=== PATIENT | female | born 1970 | race Caucasian/White ===

== ENCOUNTER 2017-07-23 14:08 | Emergency (ER) | payer OTHER ==
[~2017-07-23] VITALS: Ht 170.2 cm; Wt 50.0 kg
[2017-07-23] MEDS ORDERED: ONDANSETRON 4 MG INJ IV STA (14:12)
[2017-07-23] MEDS ORDERED: SOD CHLORIDE 0.9% 1,000 ML IV STA (14:12)
[2017-07-23] MEDS ORDERED: HALOPERIDOL 5 MG INJ IM ONE ×2 (14:30)
[2017-07-23 14:35] VITALS: Ht 170.2 cm; Wt 50.0 kg
[2017-07-23 15:03] LABS: BASOPHIL # 0.1 10^3/ul (0.0-0.1); BASOPHILS % 0.7 % (0.0-2.0); EOSINOPHILS % 0.1 % (0.0-7.0); HEMATOCRIT 33.8 % (37.0-47.0); HEMOGLOBIN 11.5 g/dl (12.0-16.0); LYMPHOCYTES # 2.7 10^3/ul (0.8-2.9); LYMPHOCYTES % 27.8 % (15.0-51.0); MEAN CORPUSCULAR HEMOGLOBIN 28.8 pg (29.0-33.0); MEAN CORPUSCULAR VOLUME 84.5 fl (82.0-101.0); MEAN PLATELET VOLUME 10.6 fl (7.4-10.4); MONOCYTE # 0.8 10^3/ul (0.3-0.9); MONOCYTES % 7.8 % (0.0-11.0); NEUTROPHIL # 6.1 10^3/ul (1.6-7.5); NEUTROPHILS % 63.3 % (39.0-77.0); PLATELET COUNT 439 10^3/UL (140-415); RED CELL DISTRIBUTION WIDTH 16.8 % (11.5-14.5); WHITE BLOOD COUNT 9.7 10^3/ul (4.8-10.8)
[2017-07-23 15:27] LABS: URINE BLOOD (Dip) POC Negative (NEGATIVE)
[2017-07-23 15:54] LABS: ACETAMINOPHEN < 10.0 ug/ml (10.0-30.0); ETHANOL < 10.0 mg/dl; SALICYLATE < 1.0 mg/dl (5.0-30.0)
[2017-07-23 16:01] LABS: ADD UMIC NO; UR ASCORBIC ACID 20 mg/dL (NEGATIVE); UR BILIRUBIN (Dip) NEGATIVE (NEGATIVE); UR BLOOD (Dip) NEGATIVE (NEGATIVE); UR CLARITY CLEAR (CLEAR); UR COLOR YELLOW (YELLOW); UR GLUCOSE (Dip) NEGATIVE (NEGATIVE); UR KETONES (Dip) NEGATIVE (NEGATIVE); UR LEUKOCYTE ESTERASE (Dip) NEGATIVE Leu/ul (NEGATIVE); UR NITRITE (Dip) NEGATIVE (NEGATIVE); UR SPECIFIC GRAVITY (Dip) 1.028 (1.003-1.030); UR TOTAL PROTEIN (Dip) NEGATIVE (NEGATIVE); UR UROBILINOGEN (Dip) NEGATIVE (NEGATIVE)
[2017-07-23 16:02] LABS: ALBUMIN 4.5 g/dl (3.3-4.9); ALBUMIN/GLOBULIN RATIO 1.25; BILIRUBIN,INDIRECT 0.8 mg/dl (0-1.1); BILIRUBIN,TOTAL 0.8 mg/dl (0.2-1.3); CALCIUM 9.8 mg/dl (8.4-10.2); CREATININE 0.84 mg/dl (0.44-1.00); POTASSIUM 4.2 mmol/L (3.5-5.1); TOTAL PROTEIN 8.1 g/dl (6.1-8.1)
[2017-07-23 16:24] LABS: BARBITURATES Negative (NEGATIVE); BENZODIAZEPINES Negative (NEGATIVE); CANNABINOIDS Negative (NEGATIVE); COCAINE Negative (NEGATIVE); OPIATES Negative (NEGATIVE)
--- NOTE | 2017-07-23 19:56 | ERD ---
ER Documentation Chief Complaint Chief Complaint HPI This 47-year-old female was brought in by paramedics and police after she was agitated in public shouting obscenities. She admits to using crystal meth and continues shouting obscenities. She denies having any pain. Is unable to get a accurate history from she is very agitated. ROS Denies all symptoms a comprehensive review of systems however she may be unreliable secondary to methamphetamine intoxication. Physical Exam Vitals Vital Signs Date Time Temp Pulse Resp B/P Pulse Ox O2 Delivery O2 Flow Rate FiO2 07/23/17 18:48 78 16 145/91 99 Room Air 07/23/17 18:00 81 16 135/91 100 Room Air 07/23/17 16:30 83 16 142/98 100 Room Air 07/23/17 16:15 98.1 83 16 135/96 100 07/23/17 16:00 98.0 80 17 141/92 100 Room Air 07/23/17 15:45 85 16 134/96 100 Room Air 07/23/17 15:30 96 16 124/88 100 Room Air 07/23/17 15:15 97.8 87 16 135/88 100 Room Air 07/23/17 15:00 98.0 96 16 145/76 100 Room Air 07/23/17 14:45 98.1 101 18 124/71 100 Room Air 07/23/17 14:35 98.1 104 18 127/72 100 Room Air 07/23/17 14:35 98.1 104 18 127/72 96 Physical Exam Const: [] Moderate distress, very agitated Head: Atraumatic Eyes: Normal Conjunctiva, PERRLA with moderately dilated pupils, EOMI ENT: Normal External Ears, Nose and Mouth. Poor dentition Neck: Full range of motion.. No JVD Resp: Clear to auscultation bilaterally Cardio: Regular rate and rhythm, no murmurs Abd: Soft, non tender, non distended. Normal bowel sounds Skin: No petechiae or rashes Ext: No cyanosis, or edema Neur: Awake and alert and oriented times at least 2, did not answer the third orientation questions to time, moves all 4 extremities certainly but cannot perform a full neurological exam secondary to lack of cooperation Psych: Very agitated Result Diagram: 07/23/17 1410 07/23/17 1300 Results 24 hrs Laboratory Tests Test 07/23/17 13:00 07/23/17 14:10 07/23/17 14:17 07/23/17 14:19 Sodium Level 141mmol/L Potassium Level 4.2mmol/L Chloride Level 104mmol/L Carbon Dioxide Level 28mmol/L Anion Gap 13 Blood Urea Nitrogen 24mg/dl Creatinine 0.84mg/dl Glucose Level 94mg/dl Calcium Level 9.8mg/dl Total Bilirubin 0.8mg/dl Direct Bilirubin 0.00mg/dl Indirect Bilirubin 0.8mg/dl Aspartate Amino Transf (AST/SGOT) 36IU/L Alanine Aminotransferase (ALT/SGPT) 33IU/L Alkaline Phosphatase 55IU/L Total Protein 8.1g/dl Albumin 4.5g/dl Globulin 3.60g/dl Albumin/Globulin Ratio 1.25 Lipase 83U/L Salicylates Level < 1.0mg/dl Acetaminophen Level < 10.0ug/ml Ethyl Alcohol Level < 10.0mg/dl White Blood Count 9.710^3/ul Red Blood Count 4.0010^6/ul Hemoglobin 11.5g/dl Hematocrit 33.8% Mean Corpuscular Volume 84.5fl Mean Corpuscular Hemoglobin 28.8pg Mean Corpuscular Hemoglobin Concent 34.0g/dl Red Cell Distribution Width 16.8% Platelet Count 40494^3/UL Mean Platelet Volume 10.6fl Neutrophils % 63.3% Lymphocytes % 27.8% Monocytes % 7.8% Eosinophils % 0.1% Basophils % 0.7% Nucleated Red Blood Cells % 0.0/100WBC Neutrophils # 6.110^3/ul Lymphocytes # 2.710^3/ul Monocytes # 0.810^3/ul Eosinophils # 0.010^3/ul Basophils # 0.110^3/ul Nucleated Red Blood Cells # 0.010^3/ul Lactic Acid Level 1.3mmol/L Bedside Glucose 114mg/dL 139mg/dL Test 07/23/17 15:24 07/23/17 15:26 Urine Color YELLOW Urine Clarity CLEAR Urine pH 5.0 Urine Specific [place] 1.028 Urine Ketones NEGATIVEmg/dL Urine Nitrite NEGATIVEmg/dL Urine Bilirubin NEGATIVEmg/dL Urine Urobilinogen NEGATIVEmg/dL Urine Leukocyte Esterase NEGATIVELeu/ul Urine Hemoglobin NEGATIVEmg/dL Urine Glucose NEGATIVEmg/dL Urine Total Protein NEGATIVEmg/dl Urine Opiates Screen Negative Urine Barbiturates Negative Urine Amphetamines Screen POSITIVE Urine Benzodiazepines Screen Negative Urine Cocaine Screen Negative Urine Cannabinoids Negative Bedside Urine pH (LAB) 5.5 Bedside Urine Protein (LAB) 1+ Bedside Urine Glucose (UA) Negative Bedside Urine Ketones (LAB) Negative Bedside Urine Blood Negative Bedside Urine Nitrite (LAB) Negative Bedside Urine Leukocyte Esterase (L Negative Current Medications Medications (Trade) Dose Ordered Sig/Catina Route PRN Reason Start Time Stop Time Status Last Admin Dose Admin Sodium Chloride (NS) 1,000 ml @ 1,000 mls/hr Q1H STAT IV 07/23/17 14:12 07/23/17 15:11 DC 07/23/17 14:26 Ondansetron HCl (Zofran Inj) 4 mg ONCE STAT IV 07/23/17 14:12 07/23/17 14:13 DC 07/23/17 14:26 Haloperidol (Haldol) 5 mg ONCE ONCE IM 07/23/17 14:30 07/23/17 14:31 DC 07/23/17 14:21 Haloperidol (Haldol) 5 mg ONCE ONCE IM 07/23/17 14:30 07/23/17 14:31 DC Procedures/MDM Methamphetamine intoxication with aggressive and agitated behavior. Laboratory analysis performed which shows no acute abnormalities. Patient does have mild anemia. Tox screen for methamphetamines. Patient was given Haldol 5 mg and then repeat dose of Haldol 5 mg that she remained agitated. She was more reasonable couple hours later and stated that she still had no pain or trauma. She did not have any thoughts of harming herself or others. She was still fairly uncooperative and was somnolent. Denies any chest pain shortness of breath or any other pain. Disposition be left to the oncoming provider but anticipate that she will be discharged as soon as her methamphetamine intoxication wears off. Is also given Zofran injection in order to prevent vomiting secondary to methamphetamine intoxication. 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 Departure Diagnosis: Primary Impression: Methamphetamine intoxication Additional Impression: Agitation Condition: Stable JASBIR RODRIGUEZ DO Jul 23, 2017 19:56
[2017-07-23 22:00] VITALS: BP 145/70; PULSE 72; RESP 16; TEMP 98.5
== END 2017-07-23 22:00 | disposition home or self-care (01) ==
LOC: E/R 14:08
DX: F15.129 Other stimulant abuse with intoxication, unspecified (principal); R40.2142 Coma scale, eyes open, spontaneous, at arrival to emergency department; R40.2242 Coma scale, best verbal response, confused conversation, at arrival to emergency department; R40.2342 Coma scale, best motor response, flexion withdrawal, at arrival to emergency department
CPT/HCPCS: 36415; 80053; 80306; 80307; 81003; 82962; 83605; 83690; 85025; 96372; 96374; J1630; J2405; J7030; P9612; Z7502; Z7610; A4310

== ENCOUNTER 2018-12-27 17:47 | Emergency (ER) | payer SELFPAY ==
[~2018-12-27] VITALS: Ht 171.4 cm; Wt 62.9 kg
[2018-12-27 18:41] VITALS: Ht 171.4 cm; Wt 62.9 kg
--- NOTE | 2018-12-28 05:40 | ERD ---
ER Documentation Chief Complaint Chief Complaint [id number]; RAN OUT OF ASTGMA MEDS; FEELS SOB TODAY; NO RESP DISTRESS HPI This is a 48-year-old brought in by rescue initiates that she ran out of for psychological medications. She denies any fevers chills nausea vomiting which she does say she is hearing and seeing voices. She has no fevers or chills. Denies any other current complaints. ROS All systems reviewed and are negative except as per history of present illness. Medications Home Meds Unable to Obtain Active Prescriptions or Reported Meds Allergies Allergies: Coded Allergies: Unknown: Unable to obtain (Unverified , 07/04/18) PMhx/Soc Hx Miscellaneous Medical Probl: Yes (schizophrenia) Hx Alcohol Use: No (denies) Hx Substance Use: No Hx Tobacco Use: Yes Physical Exam Vitals Vital Signs Date Temp Pulse Resp B/P (MAP) Pulse Ox O2 O2 Flow FiO2 Time Delivery Rate 12/27/18 98.5 85 19 160/101 100 18:41 (120) Physical Exam Const: No acute distress Head: Atraumatic Eyes: Normal Conjunctiva ENT: Normal External Ears, Nose and Mouth. Neck: Full range of motion. No meningismus. Resp: Clear to auscultation bilaterally Cardio: Regular rate and rhythm, no murmurs Abd: Soft, non tender, non distended. Normal bowel sounds Skin: No petechiae or rashes Back: No midline or flank tenderness Ext: No cyanosis, or edema Neur: Awake and alert Psych: Normal Mood and Affect Procedures/MDM Patient's behavioral symptoms have stabilized while in the department. Patient is medically cleared and appropriate for psychiatric evaluation and work up. No e/o neurologic, toxic, infectious, or metabolic cause. At this time she is pending telemetry psychiatry evaluation for possible 5150 hold Departure Diagnosis: Primary Impression: Psychological disorder Condition: SONA Morales Dec 28, 2018 05:40
--- NOTE | 2018-12-28 06:06 | PSY ---
Date/Time of Note Date/Time of Note DATE: 12/28/18 TIME: 05:57 Psychiatric Subjective Eval Consent Pt consented to telemedicine: Yes Subjective Evaluation Patient location: emergency Chief Complaint: [id number]; RAN OUT OF ASTGT Urological MEDS; FEELS SOB TODAY; NO RESP DISTRESS Medical history Problems Medical Problems: (1) Agitation Status: Acute (2) Methamphetamine intoxication Status: Acute (3) Psychological disorder Status: Acute (4) Suicidal ideation Status: Acute Allergies: Coded Allergies: Unknown: Unable to obtain (Unverified , 07/04/18) Assessment and Plan Recommendation/Plan Discharge Disposition: Psychiatric inpatient Legal Status: Place involuntary hold Assessment Additional comments: IDENTIFYING INFORMATION: 48 year old Female patient who is currently located at the hospital and for whom psychiatric consultation was requested. SOURCES OF INFORMATION: The patient who appears to be somewhat reliable and the medical records; the nursing staff. CHIEF COMPLAINT: "suicidal". HISTORY OF PRESENT ILLNESS: The patient was interviewed via telemedicine in the presence of and under the supervision of nursing staff of the hospital. The consent to conducting this interview via telemedicine was obtained by the nursing staff at the hospital. BESSIE Early reports that the patient presented with a medication refill request for asthma, AH which are slanderous, SI. Is not on a 5150 hold. The patient reports having SI, depressed mood, AH. The patient denies having delusions, VH. The patient denies using alcohol heavily or regularly. The patient denies using any other substances. In terms of past psychiatric history, the patient reports having a history of past psychiatric hospitalizations. The patient reports having a history of past suicide attempts. Past trials: Effexor, latuda, geodon. PAST MEDICAL HISTORY: none. CURRENT MEDICATIONS: none. ALLERGIES TO MEDICATIONS: NKDA. LABORATORY TESTS: pending. SOCIAL HISTORY: lives alone, not homeless, has children, , not employed. REVIEW OF SYSTEMS: Constitutional (e.g., fever, weight loss): negative; Eyes, Ears, Nose, Mouth, Throat: negative; Cardiovascular: negative; Respiratory: negative; Gastrointestinal: negative; Genitourinary: negative; Musculoskeletal: negative; Integumentary (skin and/or breast): negative; Neurological: negative; Psychiatric: as per HPI; Endocrine: negative; Hematologic/Lymphatic: negative; Allergic/Immunologic: negative. MENTAL STATUS EXAMINATION: General Appearance and Behavior: Calm, cooperative with the interview, pleasant with the current interviewer, makes fair eye contact, fairly groomed, no abnormal movements noted, Speech: Regular rate, regular rhythm, normal latency, normal volume, somewhat decreased amount, Flow of thought: sequential, logical, goal-directed, Content of thought: + auditory hallucinations, no visual hallucinations, no delusions, positive for suicidal ideation; no homicidal ideation, Mood: "depressed", Affect: dysthymic, dysphoric, not reactive, Attention: normal based on the interview, Insight: fair, Judgment: poor, Memory: normal based on the interview, Sensorium: alert and oriented to person, place and date. ASSESSMENT: The patient's presentation and history are consistent with the diagnosis of unspecified psychotic disorder. The patient presents with an exacerbation of psychosis in the context of medication noncompliance, psychosocial stressors and substance use. No evidence of psychosis, maia, hypomania on exam. PLAN: - Medication management: Would start Latuda 40 mg po qday. Would start haloperidol 5 mg IM PRN severe agitation q4 hours. Would start diphenhydramine 50 mg IM PRN severe agitation q4 hours. Would start lorazepam 2 mg IM PRN severe agitation q4 hours Will defer to the inpatient psychiatry team for other medication changes. - Labs: Please check CBC, CMP, Alcohol level, UDS. - Psychotherapy: Provided supportive psychotherapy and psychoeducation. - Disposition: Would recommend involuntary admission to the inpatient psychiatric unit given the severity of the patient's psychiatric condition and the fact that the patient is an imminent danger to self and/or others so long as the patient has been cleared medically for admission to psychiatry. Inpatient psychiatric a dmission is at this time the least restrictive environment where the patient can receive the psychiatric care that is needed. Would place on suicide precautions. The patient fulfills criteria for being placed on an involuntary hold for being a danger to self due to a psychiatric disorder. Discussed about the above plan with Dr. Cabrera. ALESIA LOVE MD Dec 28, 2018 06:06
--- NOTE | 2018-12-28 19:41 | QN ---
Documentation Comment Observation Note: Time: 4 hours Family Hx: Negative for diabetes Evaluation: Multiple exams showed improving symptoms and no evidence of clinical decompensation. DEVAUGHN PORTER MD Dec 28, 2018 19:41
[2018-12-28] MEDS ORDERED: VENL37.56 PO (23:45)
[2018-12-28] MEDS ORDERED: LURA20TA PO (23:45)
--- NOTE | 2018-12-29 04:36 | EN ---
Date/Time of Note Date/Time of Note DATE: 12/29/18 TIME: 04:36 ER Progress Note Observation Note: Time: 4 hours Family Hx: No Hypertension Evaluation: Multiple exams showed improving symptoms and no evidence of decompensation SONA HERNANDEZ Dec 29, 2018 04:36
[2018-12-29] MEDS ORDERED: ZIPRASIDONE 20 MG CAP PO ONE (09:00)
[2018-12-29 16:03] VITALS: BP 115/75; PULSE 98; RESP 17
== END 2018-12-29 17:10 ==
LOC: E/R 17:47
DX: F99 Mental disorder, not otherwise specified (principal); Z87.891 Personal history of nicotine dependence
CPT/HCPCS: 36415; 80053; 80307; 81001; 84703; 85025

== ENCOUNTER 2019-02-27 23:03 | Inpatient (IN) | payer OTHER ==
[~2019-02-27] VITALS: Ht 165.1 cm; Wt 64.1 kg
[~2019-02-27 23:03] MED LIST: LURA20TA PO; VENL37.56 PO
[2019-02-27 23:15] VITALS: Ht 165.1 cm; Wt 64.1 kg
[2019-02-27] MEDS ORDERED: ONDANSETRON 4 MG INJ IV STA (23:26)
[2019-02-27] MEDS ORDERED: SOD CHLORIDE 0.9% 1,000 ML IV STA (23:26)
--- NOTE | 2019-02-28 03:06 | ERD ---
ER Documentation Chief Complaint Chief Complaint nausea, vomit HPI This is a 48-year-old female who is homeless and said she is had nausea and vomiting for several days now. She is a very poor historian and will not answer many my questions. She says she had diarrhea that she says she is not sure. Denies any cough or dysuria. She says she has abdominal pain that is diffuse and moderate. Does not know if she is had a fever ROS All systems reviewed and are negative except as per history of present illness. Allergies Allergies: Coded Allergies: No Known Allergy (Unverified , 02/28/19) PMhx/Soc Medical and Surgical Hx: pt denies Medical Hx, pt denies Surgical Hx Hx Psychiatric Problems: Yes (SCHIZOPHRENIA ) Hx Alcohol Use: No Hx Substance Use: No Hx Tobacco Use: No Smoking Status: Never smoker FmHx Family History: No coronary disease Physical Exam Vitals Vital Signs Date Temp Pulse Resp B/P (MAP) Pulse Ox O2 O2 Flow FiO2 Time Delivery Rate 02/27/19 98.4 86 16 110/69 100 23:15 (83) Physical Exam Const: Well-developed, well-nourished Head: Atraumatic, normocephalic Eyes: Normal Conjunctiva, PERRLA, EOMI, normal sclera, no nystagmus ENT: Normal External Ears, Nose and Mouth, moist mucus membranes. Neck: Full range of motion. No meningismus, no lymphadenopathy. Resp: Clear to auscultation bilaterally, no wheezing, rhonchi, rales Cardio: Regular rate and rhythm, no murmurs, S1 S2 present Abd: Soft, diffuse moderate tenderness, non distended. Normal bowel gomez nds, no guarding or rebound, no pulsitile abdominal masses or bruits Skin: No petechiae or rashes, no ecchymosis , no maculopapular rash Back: No midline or flank tenderness Ext: No cyanosis, or edema, FROM x 4, normal inspection, neurovascularly intact x 4 Neur: Awake and alert, STR 5/5 x 4, sensation intact x 4, no focal findings, cerebellum intact Psych: Normal Mood and Affect Result Diagram: 02/27/19 6845 02/27/19 8756 Results 24 hrs Laboratory Tests Test 02/27/19 23:39 02/27/19 23:59 White Blood Count 18.9 10^3/ul Red Blood Count 4.87 10^6/ul Hemoglobin 14.9 g/dl Hematocrit 45.2 % Mean Corpuscular Volume 92.8 fl Mean Corpuscular Hemoglobin 30.6 pg Mean Corpuscular Hemoglobin Concent 33.0 g/dl Red Cell Distribution Width 13.2 % Platelet Count 245 10^3/UL Mean Platelet Volume 10.5 fl Immature Granulocytes % 0.400 % Neutrophils % 89.0 % Lymphocytes % 2.7 % Monocytes % 6.7 % Eosinophils % 0.8 % Basophils % 0.4 % Nucleated Red Blood Cells % 0.0 /100WBC Immature Granulocytes # 0.080 10^3/ul Neutrophils # 16.8 10^3/ul Lymphocytes # 0.5 10^3/ul Monocytes # 1.3 10^3/ul Eosinophils # 0.2 10^3/ul Basophils # 0.1 10^3/ul Nucleated Red Blood Cells # 0.0 10^3/ul Serum HCG, Qualitative NEGATIVE Sodium Level 140 mmol/L Potassium Level 3.4 mmol/L Chloride Level 103 mmol/L Carbon Dioxide Level 27 mmol/L Anion Gap 10 Blood Urea Nitrogen 17 mg/dl Creatinine 0.64 mg/dl Est Glomerular Filtrat Rate mL/min > 60 mL/min Glucose Level 101 mg/dl Calcium Level 8.1 mg/dl Total Bilirubin 0.9 mg/dl Direct Bilirubin 0.00 mg/dl Indirect Bilirubin 0.9 mg/dl Aspartate Amino Transf (AST/SGOT) 26 IU/L Alanine Aminotransferase (ALT/SGPT) 26 IU/L Alkaline Phosphatase 48 IU/L Total Protein 6.4 g/dl Albumin 3.7 g/dl Globulin 2.70 g/dl Albumin/Globulin Ratio 1.37 Lipase 107 U/L Current Medications Medications Dose Sig/Catina Start Time Status Last (Trade) Ordered Route PRN Stop Time Admin Dose Reason Admin Sodium 1,000 ml @ Q1H STAT 02/27/19 DC 02/27/19 Chloride 1,000 mls/hr IV 23:26 23:44 02/28/19 00:25 Ondansetron 4 mg ONCE STAT 02/27/19 DC 02/27/19 HCl (Zofran IV 23:26 23:44 Inj) 02/27/19 23:27 Procedures/MDM [place] [id number] Radiology Main Line: [phone] DIAGNOSTIC IMAGING REPORT Patient: RON GUALLPA : 1970 Age: 48 Sex: F MR #: [id number] DOS: 02/28/19 0149 Ordering MD: SIMON SIM DO Location: E/R Room/Bed: PROCEDURE: CHEST - 1 VIEW CLINICAL INDICATION: 48-year-old female with chest/abdominal pain. TECHNIQUE: A single frontal AP supine view of the chest was performed. The images were reviewed on a PACS workstation. COMPARISON: None. FINDINGS: The cardiomediastinal silhouette has a normal appearance. There is no evidence for an infiltrate. There is no evidence for congestive heart failure. There is no evidence for pneumothorax. The osseous structures are intact. IMPRESSION: No evidence for active cardiopulmonary disease. .Jonel Srinivasan MD, MD Date Time Electronically viewed and signed by .Jonel Srinivasan MD, MD on 02/28/2019 02:48 .M/ CC: SIMON SIM DO [id number] [place] [id number] Radiology Main Line: [phone] DIAGNOSTIC IMAGING REPORT Patient: RON GUALLPA : 1970 Age: 48 Sex: F MR #: [id number] DOS: 02/27/19 2326 Ordering MD: SIMON SIM DO Location: E/R Room/Bed: PROCEDURE: CT ABDOMEN/PELVIS WITHOUT CONTRAST CLINICAL INDICATION: 48-year-old female with abdominal pain. TECHNIQUE: The study was performed utilizing a [employer] 64-slice CT scanner. Direct axial sections were obtained through the abdomen and pelvis without the use of intravenous contrast material. The patient was rescanned secondary to motion (respiratory) artifact. Sagittal and coronal reformations were obtained. One or more of the following dose reduction techniques were utilized: automated exposure control, adjustment of the mA and/or kV according to patient's size, use of iterative reconstruction technique. DICOM images are available. The images were reviewed on a PACS workstation. CTD/vol = 13.82 mGy; Total Exam DLP = 824.59 mGy.cm. COMPARISON: None. FINDINGS: The lung bases are unremarkable. There is no evidence for significant pleural effusion. The liver has a normal size and contour without focal areas of abnormal density. No intrahepatic nor extrahepatic biliary ductal dilatation is seen. The gallbladder demonstrates no wall thickening nor pericholecystic fluid. No biliary stones are evident. The pancreas is without areas of abnormal attenuation. The spleen is identified and has a normal size without abnormal density. The adrenal glands are unremarkable. The kidneys are without abnormal density. No hydroureteronephrosis nor nephroureterolithiasis is evident. The urinary bladder contains urine. There are diffusely dilated thickened loops of fluid-filled small bowel fluid identified within the ascending and transverse colon. There is retained stool within the rectosigmoid colon without obstruction. The appendix is visualized and is without abnormal thickening or surrounding inflammatory reaction. The uterus is enlarged with a globular appearance measuring approximately 10.9 x 9.5 x 10.1 cm. There is no significant pelvic free fluid. The aortoiliac vessels are without aneurysmal dilatation. The osseous structures are intact. IMPRESSION: 1. Diffusely thickened fluid-filled small bowel and proximal colon most s uggestive of an enterocolitis without evidence for obstruction. 2. No CT evidence for appendicitis. 3. Enlarged lobular uterus. .Jonel Srinivasan MD, MD Date Time Electronically viewed and signed by .Jonel Srinivasan MD, MD on 02/28/2019 02:48 .M/ CC: SIMON SIM DO [id number] Patient has small bowel and proximal colon thickening of the wall consistent with colitis with elevated white blood count of 18.9. We will admit her for IV antibiotics and IV fluids. Departure Diagnosis: Primary Impression: Colitis Additional Impression: Enterocolitis Condition: Stable SIMON SIM DO Feb 28, 2019 03:06
[2019-02-28] MEDS ORDERED: SOD CHLORIDE 0.9% 1,000 ML IV SCH (03:08)
[2019-02-28] MEDS ORDERED: ACETAMINOPHEN 325 MG TAB PO PRN ×2 (03:30→05:30)
[2019-02-28] MEDS ORDERED: LORAZEPAM 2 MG INJ IV ONE (03:30)
[2019-02-28] MEDS ORDERED: ERTAPENEM SODIUM 1 GM in SOD CHLORIDE 0.9% 100 ML IVPB ONE (03:30)
[2019-02-28] MEDS ORDERED: ONDANSETRON 4 MG INJ IV PRN ×2 (03:30→05:30)
[2019-02-28] MEDS ORDERED: POTASSIUM CHLORIDE (SR) 20 MEQ TAB PO STA (05:17)
[2019-02-28] MEDS ORDERED: PIPER-TAZO 3.375 GM IV (PMX) 100 ML ONE (05:18)
--- NOTE | 2019-02-28 05:19 | HP ---
Date/Time of Note Date/Time of Note DATE: 02/28/19 TIME: 05:17 Assessment/Plan VTE Prophylaxis Pharmacological prophylaxis: heparin Lines/Catheters IV Catheter Type (from Nrsg): Saline Lock Assessment/Plan Assessment/Plan 48-year-old homeless female presents with nausea/vomiting and diarrhea secondary to enterocolitis PLAN -Keep n.p.o. with IV fluid -IV antibiotic -Stool studies -Pain management and antiemetics as needed Result Diagram: 02/27/19 3022 02/27/19 2359 Results 24hrs Laboratory Tests Test 02/27/19 23:39 02/27/19 23:59 White Blood Count 18.9 H Red Blood Count 4.87 Hemoglobin 14.9 Hematocrit 45.2 Mean Corpuscular Volume 92.8 Mean Corpuscular Hemoglobin 30.6 Mean Corpuscular Hemoglobin Concent 33.0 Red Cell Distribution Width 13.2 Platelet Count 245 Mean Platelet Volume 10.5 H Immature Granulocytes % 0.400 Neutrophils % 89.0 H Lymphocytes % 2.7 L Monocytes % 6.7 Eosinophils % 0.8 Basophils % 0.4 Nucleated Red Blood Cells % 0.0 Immature Granulocytes # 0.080 H Neutrophils # 16.8 H Lymphocytes # 0.5 L Monocytes # 1.3 H Eosinophils # 0.2 Basophils # 0.1 Nucleated Red Blood Cells # 0.0 Serum HCG, Qualitative NEGATIVE Sodium Level 140 Potassium Level 3.4 L Chloride Level 103 Carbon Dioxide Level 27 Anion Gap 10 Blood Urea Nitrogen 17 Creatinine 0.64 Est Glomerular Filtrat Rate mL/min > 60 Glucose Level 101 Calcium Level 8.1 L Total Bilirubin 0.9 Direct Bilirubin 0.00 Indirect Bilirubin 0.9 Aspartate Amino Transf (AST/SGOT) 26 Alanine Aminotransferase (ALT/SGPT) 26 Alkaline Phosphatase 48 Total Protein 6.4 Albumin 3.7 Globulin 2.70 Albumin/Globulin Ratio 1.37 Lipase 107 HPI/ROS Admit Date/Time Admit Date/Time Feb 28, 2019 at 03:08 Hx of Present Illness Patient is a 48-year-old homeless female who was brought to the ER for vomiting and diarrhea. Vomiting is nonbilious and nonbloody. Patient has been excessively sleepiness that goes any information has been difficult. She did however report nausea vomiting and vague abdominal pain. When she presented to ER, vitals were stable. Labs shows a WBC of 19,000 and a potassium of 3.4. CT abdomen/pelvis shows the followin. Diffusely thickened fluid-filled small bowel and proximal colon most sugg estive of an enterocolitis without evidence for obstruction. 2. No CT evidence for appendicitis. 3. Enlarged lobular uterus. PMH/Family/Social Past Medical History Medical History: other (See HPI) Medications Current Medications Sodium Chloride 1,000 ml @ 80 mls/hr [id number] IV ; Start 02/28/19 at 03:08; Sto p 02/28/19 at 15:37 Ondansetron HCl (Zofran Inj) 4 mg BRIDGE ORDER PRN IV NAUSEA/VOMITING; Start 02/28/19 at 03:30; Stop 03/01/19 at 03:29 Acetaminophen (Tylenol Tab) 650 mg ER BRIDGE PRN PO .MILD PAIN 1-3 OR TEMP; Start 02/28/19 at 03:30; Stop 03/01/19 at 03:29 Coded Allergies: No Known Allergy (Unverified , 02/28/19) Past Surgical History Past Surgical Hx: other (See HPI) Family History Significant Family History: no pertinent family hx Social History Alcohol Use: none Smoking Status: Never smoker Drug Use: none Exam/Review of Systems Vital Signs Vitals Vital Signs Date Temp Pulse Resp B/P (MAP) Pulse Ox O2 O2 Flow FiO2 Time Delivery Rate 02/28/19 98.3 84 16 108/67 97 Room Air 04:12 (81) Exam Constitutional: other (No acute distress. Sleepy) Head: normocephalic, atraumatic Eyes: EOMI, PERRL Respiratory: clear to auscultation, normal air movement Cardiovascular: regular rate and rhythm, nl pulses Gastrointestinal: soft, tender Extremities: normal pulses SONA SHIPMAN MD Feb 28, 2019 05:19
[2019-02-28] MEDS ORDERED: POTASSIUM CHLORIDE (SR) 20 MEQ TAB PO ONE ×2 (05:22)
[2019-02-28] MEDS: DEXTROSE 5%-0.45% NACL 1,000 ML IV SCH ×3 (05:25→14:30)
[2019-02-28] MEDS: PIPER-TAZO 3.375 GM IV (PMX) 100 ML IVPB SCH ×4 (05:27→23:36)
[2019-02-28] MEDS ORDERED: morphine 2 MG INJ IV PRN (05:30)
[2019-02-28] MEDS ORDERED: NACL 0.9% 3 ML SYG IV SCH (05:30)
[2019-02-28] MEDS ORDERED: ALBUTEROL/IPRATROPIUM (NEB) 3 ML AMP HHN PRN (05:30)
[2019-02-28 07:50] VITALS: BP 111/72; PULSE 73; RESP 17
[2019-02-28] MEDS: FAMOTIDINE 20 MG INJ IV SCH ×2 (09:03→20:17)
[2019-02-28] MEDS: HEPARIN 5,000 UNIT/1 ML VIAL SC SCH ×2 (09:03→20:18)
--- NOTE | 2019-02-28 14:36 | QN ---
Documentation Comment 48-year-old homeless female admitted with nausea/vomiting/diarrhea, found to have enterocolitis. Patient symptoms are improving. She is asking for a diet as such we will start her on a clear diet. Patient would benefit from further cystoscopic exam for which we will also consult fruit worker. Continue empiric antimicrobials and follow-up stool studies and culture results. Continue IV fluids. Patient was seen in collaboration with Dr. Wesley. ACACIA ZACARIAS NP Feb 28, 2019 14:36
--- NOTE | 2019-02-28 17:29 | CONS ---
Assessment/Plan Assessment/Plan Hospital Course (Demo Recall) Summary Assessment and Plan: Assessment: Enterocolitis Leukocytosis likely secondary to above Nausea/vomiting Schizophrenia Bipolar disorder Plan: Clear liquid diet- today NPo after 03/01/19 0900 Will await stool studies egd/colonoscopy tomorrow Endoscopy - risks/benefits/alternatives/indications of procedure and sedation/anesthesia discussed with patient who states understading and gives i nformed consent to proceed. PARQ held and questions were answered. Will check ESR/CRP Patient seen in collaboration with Dr. Cramer CC: ROYCE CRAMER MD ; Consultation Date/Type/Reason Admit Date/Time Feb 28, 2019 at 03:08 Date of Consultation: Feb 28, 2019 Type of Consult GI Reason for Consultation Enterocolitis Date/Time of Note DATE: 02/28/19 TIME: 17:17 Hx of Present Illness This is a 48-year-old homeless female who is a poor historian she states she has a past medical history of schizophrenia and bipolar order who presented to the hospital with complaints of nausea vomiting abdominal pain with diarrhea. Here work-up was obtained including hematology showing a leukocytosis with a WBC of 18.9 neutrophils 89 and lymphocytes 2.7 additionally chemistry shows mild hypokalemia normal LFTs and a serum hCG qualitative is negative. A chest x-ray was completed impression states is following no evidence of active cardiopulmonary disease. Additionally a CT abdomen/pelvis without contrast revealed diffusely thickened fluid-filled small bowel and proximal colon most suggestive of an enterocolitis without evidence for obstruction, no CT evidence for appendicitis, enlarged lobular uterus. Stool studies have been ordered and are currently pending patient has been started on empiric antibiotics at time evaluation patient denies abdominal pain she states nausea and vomiting secondary to her menses versus questionable miscarriage. States she has never had an EGD or colonoscopy she denies alcohol abuse or drug use. Review of Systems: A 12 system, review was conducted and is negative except as noted in the HPI or here. Past Medical History Medical History: other (See HPI) Home Meds Reported Medications Venlafaxine Hcl* (Effexor*) 37.5 Mg Tablet, 37.5 MG PO BID, TAB 12/28/18 Lurasidone Hcl (LATUDA) 20 Mg Tablet, 20 MG PO DAILY, #30 TAB 12/28/18 Medications Current Medications Dextrose/Sodium Chloride 1,000 ml @ 100 mls/hr Q10H IV Last administered on 02/28/19at 14:30; Admin Dose 120 MLS/HR; Start 02/28/19 at 05:14 IV Flush (NS 3 ml) 3 ml PER PROTOCOL IV ; Start 02/28/19 at 05:30 Ondansetron HCl (Zofran Inj) 4 mg Q6H PRN IV NAUSEA/VOMITING; Start 02/28/19 at 05:30 Acetaminophen (Tylenol Tab) 650 mg Q6H PRN PO .PAIN 1-3 OR TEMP; Start 02/28/19 at 05:30 Morphine Sulfate (morphine) 2 mg Q4H PRN IV .SEVERE PAIN 7-10; Start 02/28/19 at 05:30 Famotidine (Pepcid Iv) 20 mg Q12 IV Last administered on 02/28/19at 09:03; Admin Dose 20 MG; Start 02/28/19 at 09:00 Heparin Sodium (Porcine) (Heparin (5000 Units/1ml)) 5,000 unit Q12 SC Last administered on 02/28/19at 09:03; Admin Dose 5,000 UNIT; Start 02/28/19 at 09:00 Albuterol/ Ipratropium (Duoneb) 3 ml Q2H RESP THERAPY PRN HHN SHORTNESS OF BREATH; Start 02/28/19 at 05:30 Piperacillin Sod/ Tazobactam Sod 100 ml @ 200 mls/hr Q6 IVPB Last administered on 02/28/19at 11:46; Admin Dose 200 MLS/HR; Start 02/28/19 at 06:00 Allergies: Coded Allergies: No Known Allergy (Unverified , 02/28/19) Unknown: Unable to obtain (Unverified , 07/04/18) Past Surgical History Past Surgical Hx: other (See HPI) Social History Alcohol Use: none Smoking Status: Unknown if ever smoked Drug Use: none Exam/Review of Systems Exam Vitals Vital Signs Date Temp Pulse Resp B/P (MAP) Pulse Ox O2 O2 Flow FiO2 Time Delivery Rate 02/28/19 98.7 73 17 111/72 98 Room Air 07:50 (85) Intake and Output 02/27/19 02/27/19 02/28/19 1515:00 23:00 07:00 IntakeIntake Total 200 ml BalanceBalance 200 ml Exam PHYSICAL EXAMINATION: GENERAL: Disheveled alert and oriented female SKIN: No lesions HEAD: Normocephalic, atraumatic, no tenderness. EYES: Pupils equal reactive to light, no discharge. EARS/NOSE AND THROAT: Ears normal, nose normal. NECK: Supple, no masses, CHEST: Inspection within normal limits. CARDIOVASCULAR: Heart: Regular rate and rhythm RESPIRATORY: Lungs clear to auscultation and percussion, no wheezing, no rubs GASTROINTESTINAL AND LIVER: Abdomen: Soft, non tenderness, non-distended, no hernias, no masses, no organomegaly, no ascites, no guarding, no rebound tenderness, normoactive bowel sounds. Rectal: Deferred. GENITOURINARY: Female genitalia within normal limits. EXTREMITIES: No cyanosis, clubbing or edema. Results Result Diagram: 02/27/19 2339 02/27/19 2359 Results 24hrs Laboratory Tests Test 02/27/19 23:39 02/27/19 23:59 White Blood Count 18.9 H Red Blood Count 4.87 Hemoglobin 14.9 Hematocrit 45.2 Mean Corpuscular Volume 92.8 Mean Corpuscular Hemoglobin 30.6 Mean Corpuscular Hemoglobin Concent 33.0 Red Cell Distribution Width 13.2 Platelet Count 245 Mean Platelet Volume 10.5 H Immature Granulocytes % 0.400 Neutrophils % 89.0 H Lymphocytes % 2.7 L Monocytes % 6.7 Eosinophils % 0.8 Basophils % 0.4 Nucleated Red Blood Cells % 0.0 Immature Granulocytes # 0.080 H Neutrophils # 16.8 H Lymphocytes # 0.5 L Monocytes # 1.3 H Eosinophils # 0.2 Basophils # 0.1 Nucleated Red Blood Cells # 0.0 Serum HCG, Qualitative NEGATIVE Sodium Level 140 Potassium Level 3.4 L Chloride Level 103 Carbon Dioxide Level 27 Anion Gap 10 Blood Urea Nitrogen 17 Creatinine 0.64 Est Glomerular Filtrat Rate mL/min > 60 Glucose Level 101 Calcium Level 8.1 L Total Bilirubin 0.9 Direct Bilirubin 0.00 Indirect Bilirubin 0.9 Aspartate Amino Transf (AST/SGOT) 26 Alanine Aminotransferase (ALT/SGPT) 26 Alkaline Phosphatase 48 Total Protein 6.4 Albumin 3.7 Globulin 2.70 Albumin/Globulin Ratio 1.37 Lipase 107 Medications Medication Current Medications Dextrose/Sodium Chloride 1,000 ml @ 100 mls/hr Q10H IV Last administered on 02/28/19at 14:30; Admin Dose 120 MLS/HR; Start 02/28/19 at 05:14 IV Flush (NS 3 ml) 3 ml PER PROTOCOL IV ; Start 02/28/19 at 05:30 Ondansetron HCl (Zofran Inj) 4 mg Q6H PRN IV NAUSEA/VOMITING; Start 02/28/19 at 05:30 Acetaminophen (Tylenol Tab) 650 mg Q6H PRN PO .PAIN 1-3 OR TEMP; Start 02/28/19 at 05:30 Morphine Sulfate (morphine) 2 mg Q4H PRN IV .SEVERE PAIN 7-10; Start 02/28/19 at 05:30 Famotidine (Pepcid Iv) 20 mg Q12 IV Last administered on 02/28/19at 09:03; Admin Dose 20 MG; Start 02/28/19 at 09:00 Heparin Sodium (Porcine) (Heparin (5000 Units/1ml)) 5,000 unit Q12 SC Last administered on 02/28/19at 09:03; Admin Dose 5,000 UNIT; Start 02/28/19 at 09:00 Albuterol/ Ipratropium (Duoneb) 3 ml Q2H RESP THERAPY PRN HHN SHORTNESS OF BREATH; Start 02/28/19 at 05:30 Piperacillin Sod/ Tazobactam Sod 100 ml @ 200 mls/hr Q6 IVPB Last administered on 02/28/19at 11:46; Admin Dose 200 MLS/HR; Start 02/28/19 at 06:00 ROSEMARIE STOUT Feb 28, 2019 17:27
[2019-02-28] MEDS ORDERED: BISACODYL (EC) 5 MG TAB PO ONE (17:30)
[2019-02-28] MEDS ORDERED: MAGNESIUM CITRATE 300 ML BTL PO ONE (17:30)
[2019-02-28] MEDS ORDERED: POLYETHYLENE GLYCOL 3350 119 GM POWDER PO ONE (18:30)
[2019-02-28 20:00] VITALS: BP 117/72; PULSE 78; RESP 17
[2019-02-28 22:05] VITALS: BP 102/66; PULSE 69; RESP 17
[2019-03-01] MEDS ORDERED: LORAZEPAM 2 MG INJ IV PRN ×2 (01:00→15:30)
[2019-03-01] MEDS ORDERED: HALOPERIDOL 5 MG INJ IM ONE (01:00)
[2019-03-01 02:10] VITALS: BP 86/44; PULSE 72; RESP 16
[2019-03-01] MEDS ORDERED: SOD CHLORIDE 0.9% 500 ML IV ONE ×2 (03:00→05:00)
[2019-03-01 04:00] VITALS: BP 90/52; PULSE 66
[2019-03-01] MEDS: DEXTROSE 5%-0.45% NACL 1,000 ML IV SCH ×2 (04:16→17:39)
[2019-03-01] MEDS ORDERED: POLYETHYLENE GLYCOL 3350 119 GM POWDER PO ONE (06:00)
[2019-03-01] MEDS: PIPER-TAZO 3.375 GM IV (PMX) 100 ML IVPB SCH ×3 (06:04→17:38)
[2019-03-01 06:12] VITALS: BP 99/65; PULSE 71; RESP 18
[2019-03-01 07:54] VITALS: BP 103/64; PULSE 75; RESP 18
[2019-03-01] MEDS ORDERED: BISACODYL (EC) 5 MG TAB PO ONE (08:00)
[2019-03-01] MEDS: HEPARIN 5,000 UNIT/1 ML VIAL SC SCH ×2 (09:00→22:14)
[2019-03-01] MEDS: FAMOTIDINE 20 MG INJ IV SCH ×2 (09:46→22:12)
[2019-03-01 14:33] VITALS: BP 105/68; PULSE 81; RESP 18
--- NOTE | 2019-03-01 14:53 | PN ---
Date/Time of Note Date/Time of Note DATE: 03/01/19 TIME: 14:49 Assessment/Plan VTE Prophylaxis Risk score (from [facility] [place])>0 risk: 1 SCD applied (from [facility] [place]): No SCD contraindicated: low risk/ambulating Pharmacological prophylaxis: NA/contraindicated Pharm contraindication: low risk/ambulating Lines/Catheters IV C[facility]ter Type (from [facility]): Peripheral IV Assessment/Plan Assessment/Plan 48 y/o with #Enterocolitis #Leukocytosis likely secondary to above reoslved # Nausea/vomiting #Schizophrenia # Bipolar disorder plan - iv zosyn - Bia consult - iv ativan prn - EGD today - NPO - Social service consult Result Diagram: 03/01/19 0745 03/01/19 0745 Results 24hrs Laboratory Tests Test 02/28/19 17:18 03/01/19 07:45 Erythrocyte Sedimentation Rate 4 C-Reactive Protein 1.5 H White Blood Count 4.5 #L Red Blood Count 4.03 L Hemoglobin 12.4 Hematocrit 37.8 Mean Corpuscular Volume 93.8 Mean Corpuscular Hemoglobin 30.8 Mean Corpuscular Hemoglobin Concent 32.8 Red Cell Distribution Width 13.4 Platelet Count 248 Mean Platelet Volume 10.5 H Immature Granulocytes % 0.200 Neutrophils % 48.4 Lymphocytes % 33.9 Monocytes % 12.3 H Eosinophils % 4.5 Basophils % 0.7 Nucleated Red Blood Cells % 0.0 Immature Granulocytes # 0.010 Neutrophils # 2.2 Lymphocytes # 1.5 Monocytes # 0.6 Eosinophils # 0.2 Basophils # 0.0 Nucleated Red Blood Cells # 0.0 Sodium Level 141 Potassium Level 3.7 Chloride Level 112 H Carbon Dioxide Level 22 Anion Gap 7 Blood Urea Nitrogen 7 # Creatinine 0.60 Est Glomerular Filtrat Rate mL/min > 60 Glucose Level 92 Calcium Level 7.9 L Phosphorus Level 3.4 Magnesium Level 2.4 Total Bilirubin 0.6 Direct Bilirubin 0.00 Indirect Bilirubin 0.6 Aspartate Amino Transf (AST/SGOT) 19 Alanine Aminotransferase (ALT/SGPT) 20 Alkaline Phosphatase 39 L Total Protein 5.5 L Albumin 2.9 L Globulin 2.60 Albumin/Globulin Ratio 1.11 Subjective 24 Hr Interval Summary Free Text/Dictation pt was agitated last night saying" i am hearing noises" Exam/Review of Systems Exam Vitals Vital Signs Date Temp Pulse Resp B/P (MAP) Pulse Ox O2 O2 Flow FiO2 Time Delivery Rate 03/01/19 98.0 81 18 105/68 94 Room Air 14:33 (80) Intake and Output 02/28/19 02/28/19 03/01/19 1515:00 23:00 07:00 IntakeIntake Total 1000 ml 1020 ml 1500 ml OutputOutput Total 900 ml BalanceBalance 100 ml 1020 ml 1500 ml Exam Constitutional: other (No acute distress. Head: normocephalic, atraumatic Eyes: EOMI, PERRL Respiratory: clear to auscultation, normal air movement Cardiovascular: regular rate and rhythm, nl pulses Gastrointestinal: soft, tender Extremities: normal pulses Results Results 24hrs Laboratory Tests Test 02/28/19 17:18 03/01/19 07:45 Erythrocyte Sedimentation Rate 4 C-Reactive Protein 1.5 H White Blood Count 4.5 #L Red Blood Count 4.03 L Hemoglobin 12.4 Hematocrit 37.8 Mean Corpuscular Volume 93.8 Mean Corpuscular Hemoglobin 30.8 Mean Corpuscular Hemoglobin Concent 32.8 Red Cell Distribution Width 13.4 Platelet Count 248 Mean Platelet Volume 10.5 H Immature Granulocytes % 0.200 Neutrophils % 48.4 Lymphocytes % 33.9 Monocytes % 12.3 H Eosinophils % 4.5 Basophils % 0.7 Nucleated Red Blood Cells % 0.0 Immature Granulocytes # 0.010 Neutrophils # 2.2 Lymphocytes # 1.5 Monocytes # 0.6 Eosinophils # 0.2 Basophils # 0.0 Nucleated Red Blood Cells # 0.0 Sodium Level 141 Potassium Level 3.7 Chloride Level 112 H Carbon Dioxide Level 22 Anion Gap 7 Blood Urea Nitrogen 7 # Creatinine 0.60 Est Glomerular Filtrat Rate mL/min > 60 Glucose Level 92 Calcium Level 7.9 L Phosphorus Level 3.4 Magnesium Level 2.4 Total Bilirubin 0.6 Direct Bilirubin 0.00 Indirect Bilirubin 0.6 Aspartate Amino Transf (AST/SGOT) 19 Alanine Aminotransferase (ALT/SGPT) 20 Alkaline Phosphatase 39 L Total Protein 5.5 L Albumin 2.9 L Globulin 2.60 Albumin/Globulin Ratio 1.11 Medications Medication Current Medications Dextrose/Sodium Chloride 1,000 ml @ 100 mls/hr Q10H IV Last administered on 03/01/19at 04:16; Admin Dose 100 MLS/HR; Start 02/28/19 at 05:14 IV Flush (NS 3 ml) 3 ml PER PROTOCOL IV ; Start 02/28/19 at 05:30 Ondansetron HCl (Zofran Inj) 4 mg Q6H PRN IV NAUSEA/VOMITING; Start 02/28/19 at 05:30 Acetaminophen (Tylenol Tab) 650 mg Q6H PRN PO .PAIN 1-3 OR TEMP; Start 02/28/19 at 05:30 Famotidine (Pepcid Iv) 20 mg Q12 IV Last administered on 03/01/19at 09:46; Admin Dose 20 MG; Start 02/28/19 at 09:00 Heparin Sodium (Porcine) (Heparin (5000 Units/1ml)) 5,000 unit Q12 SC Last administered on 02/28/19at 20:18; Admin Dose 5,000 UNIT; Start 02/28/19 at 09:00 Albuterol/ Ipratropium (Duoneb) 3 ml Q2H RESP THERAPY PRN HHN SHORTNESS OF BREATH; Start 02/28/19 at 05:30 Piperacillin Sod/ Tazobactam Sod 100 ml @ 200 mls/hr Q6 IVPB Last administered on 03/01/19at 12:58; Admin Dose 200 MLS/HR; Start 02/28/19 at 06:00 Lorazepam (Ativan) 1 mg Q4 PRN IV AGITATION Last administered on 03/01/19at 01:12; Admin Dose 1 MG; Start 03/01/19 at 01:00 CHENG HARRIS MD Mar 01, 2019 14:53
[2019-03-01 20:00] VITALS: BP 116/68; PULSE 75; RESP 17
[2019-03-02] VITALS (13 sets, daily range): BP systolic 102–140; BP diastolic 61–91; PULSE 57–80; RESP 12–22
[2019-03-02] MEDS: PIPER-TAZO 3.375 GM IV (PMX) 100 ML IVPB SCH ×4 (00:11→20:13)
[2019-03-02] MEDS: DEXTROSE 5%-0.45% NACL 1,000 ML IV SCH ×2 (05:04→13:15)
[2019-03-02] MEDS: FAMOTIDINE 20 MG INJ IV SCH ×2 (09:10→20:54)
[2019-03-02] MEDS: HEPARIN 5,000 UNIT/1 ML VIAL SC SCH ×2 (09:11→20:55)
--- NOTE | 2019-03-02 14:17 | PN ---
Date/Time of Note Date/Time of Note DATE: 03/02/19 TIME: 14:17 Assessment/Plan VTE Prophylaxis Risk score (from [facility])>0 risk: 1 [place] [facility] [place]CD contraindicated: low risk/ambulating Pharmacological prophylaxis: NA/contraindicated Pharm contraindication: low risk/ambulating Lines/Catheters IV Catheter Type (from [facility]): Peripheral IV Assessment/Plan Assessment/Plan 48 y/o with #Enterocolitis #Leukocytosis likely secondary to above reoslved # Nausea/vomiting #Schizophrenia # Bipolar disorder plan - iv zosyn - Bia consult PENDING - iv ativan prn - EGD /Colopnoscopy today - NPO - Social service consult Result Diagram: 03/01/19 0745 03/01/19 0745 Subjective 24 Hr Interval Summary Free Text/Dictation EGD and colonoscopy today 2 episodes of BM Exam/Review of Systems Exam Vitals Vital Signs Date Temp Pulse Resp B/P (MAP) Pulse Ox O2 O2 Flow FiO2 Time Delivery Rate 03/02/19 98.6 69 18 102/63 96 07:39 (76) 03/01/19 Room Air 14:33 Intake and Output 03/01/19 03/01/19 03/02/19 1515:00 23:00 07:00 IntakeIntake Total 100 ml 800 ml 2820 ml BalanceBalance 100 ml 800 ml 2820 ml Exam Constitutional: other (No acute distress. Head: normocephalic, atraumatic Eyes: EOMI, PERRL Respiratory: clear to auscultation, normal air movement Cardiovascular: regular rate and rhythm, nl pulses Gastrointestinal: soft, tender Extremities: normal pulses Medications Medication Current Medications Dextrose/Sodium Chloride 1,000 ml @ 100 mls/hr Q10H IV Last administered on 03/02/19at 05:04; Admin Dose 100 MLS/HR; Start 02/28/19 at 05:14 IV Flush (NS 3 ml) 3 ml PER PROTOCOL IV ; Start 02/28/19 at 05:30 Ondansetron HCl (Zofran Inj) 4 mg Q6H PRN IV NAUSEA/VOMITING; Start 02/28/19 at 05:30 Acetaminophen (Tylenol Tab) 650 mg Q6H PRN PO .PAIN 1-3 OR TEMP; Start 02/28/19 at 05:30 Famotidine (Pepcid Iv) 20 mg Q12 IV Last administered on 03/02/19at 09:10; Admin Dose 20 MG; Start 02/28/19 at 09:00 Heparin Sodium (Porcine) (Heparin (5000 Units/1ml)) 5,000 unit Q12 SC Last administered on 03/02/19at 09:11; Admin Dose 5,000 UNIT; Start 02/28/19 at 09:00 Albuterol/ Ipratropium (Duoneb) 3 ml Q2H RESP THERAPY PRN HHN SHORTNESS OF BREATH; Start 02/28/19 at 05:30 Piperacillin Sod/ Tazobactam Sod 100 ml @ 200 mls/hr Q6 IVPB Last administered on 03/02/19at 13:02; Admin Dose 200 MLS/HR; Start 02/28/19 at 06:00 Lorazepam (Ativan) 1 mg Q8 PRN IV AGITATION; Start 03/01/19 at 15:30 CHENG HARRIS MD Mar 02, 2019 14:17
--- NOTE | 2019-03-02 18:02 | PREAC ---
Date/Time of Note Date/Time of Note DATE: 03/02/19 TIME: 18:01 Anesthesia Eval and Record Evaluation Time Pre-Procedure Interview DATE: 03/02/19 TIME: 18:01 Age 48 Sex female NPO: 8 hrs Preoperative diagnosis n/v diarrhea Planned procedure egd colonoscopy Past Medical History Past Medical History: None Psych: Depression, Anxiety Surgery & Anesthesia Issues No known issue Meds Anticoagulation: No Beta Vasu within 24 hr: No Reason Beta Vasu not given: Pt. not on B-Vasu Reported Medications Venlafaxine Hcl* (Effexor*) 37.5 Mg Tablet, 37.5 MG PO BID, TAB 12/28/18 Lurasidone Hcl (LATUDA) 20 Mg Tablet, 20 MG PO DAILY, #30 TAB 12/28/18 Current Medications Dextrose/Sodium Chloride 1,000 ml @ 100 mls/hr Q10H IV Last administered on 03/02/19at 05:04; Admin Dose 100 MLS/HR; Start 02/28/19 at 05:14 IV Flush (NS 3 ml) 3 ml PER PROTOCOL IV ; Start 02/28/19 at 05:30 Ondansetron HCl (Zofran Inj) 4 mg Q6H PRN IV NAUSEA/VOMITING; Start 02/28/19 at 05:30 Acetaminophen (Tylenol Tab) 650 mg Q6H PRN PO .PAIN 1-3 OR TEMP; Start 02/28/19 at 05:30 Famotidine (Pepcid Iv) 20 mg Q12 IV Last administered on 03/02/19at 09:10; Admin Dose 20 MG; Start 02/28/19 at 09:00 Heparin Sodium (Porcine) (Heparin (5000 Units/1ml)) 5,000 unit Q12 SC Last administered on 03/02/19at 09:11; Admin Dose 5,000 UNIT; Start 02/28/19 at 09:00 Albuterol/ Ipratropium (Duoneb) 3 ml Q2H RESP THERAPY PRN HHN SHORTNESS OF BREATH; Start 02/28/19 at 05:30 Piperacillin Sod/ Tazobactam Sod 100 ml @ 200 mls/hr Q6 IVPB Last administered on 03/02/19at 13:02; Admin Dose 200 MLS/HR; Start 02/28/19 at 06:00 Lorazepam (Ativan) 1 mg Q8 PRN IV AGITATION; Start 03/01/19 at 15:30 Meds reviewed: Yes Allergies Coded Allergies: No Known Allergy (Unverified , 02/28/19) Unknown: Unable to obtain (Unverified , 07/04/18) Allergies Reviewed: Yes Labs/Studies Labs Reviewed: Reviewed by anesthesiologist Result Diagram: 03/01/19 0745 03/01/19 0745 test: Negative Pre-procedure Exam Last vitals Vital Signs Date Temp Pulse Resp B/P (MAP) Pulse Ox O2 O2 Flow FiO2 Time Delivery Rate 03/02/19 97.8 57 16 124/80 99 Room Air 17:54 (95) Airway: Adequate mouth opening, Adequate thyromental dist Mallampati: Mallampati IV Teeth: Normal Lung: Normal Heart: Normal ASA Physical Status ASA physical status: 2 Emergency: None Pre-operative Attestations Prior to commencing anesthesia and surgery, the patient was re-evaluated, there was verification of: *The patient's identity *The results of appropriate recent lab work and preoperative vital signs *The above evaluation not changing prior to induction *Anesthetic plan, risk benefits, alternative and complications discussed with patient/family; questions answered; patient/family understands, accepts and wishes to proceed. SELIN JADE DO Mar 02, 2019 18:02
[2019-03-02] MEDS ORDERED: FENTAnyl 50 MCG/ML VIAL ONE (18:04)
[2019-03-02] MEDS ORDERED: PROPOFOL 20 ML ONE (18:04)
[2019-03-02] MEDS ORDERED: MIDAZOLAM 1 MG/ML 2 ML INJ ONE (18:04)
[2019-03-02] MEDS ORDERED: LIDOCAINE 4% SOLUTION 50 ML BTL ONE (18:04)
--- NOTE | 2019-03-02 19:02 | PAC ---
Date/Time of Note Date/Time of Note DATE: 03/02/19 TIME: 19:01 Post-Anesthesia Notes Post-Anesthesia Note Last documented vital signs Vital Signs Date Temp Pulse Resp B/P (MAP) Pulse Ox O2 O2 Flow FiO2 Time Delivery Rate 03/02/19 98 65 18 120/65 99 Room Air 1900 Activity: WNL Respiratory function: WNL Cardiovascular function: WNL Mental status: Baseline Pain reasonably controlled: Yes Hydration appropriate: Yes Nausea/Vomiting absent: Yes SELIN JADE DO Mar 02, 2019 19:02
[2019-03-03] MEDS: PIPER-TAZO 3.375 GM IV (PMX) 100 ML IVPB SCH ×3 (00:01→11:49)
[2019-03-03] MEDS: DEXTROSE 5%-0.45% NACL 1,000 ML IV SCH (00:01)
[2019-03-03 02:00] VITALS: BP 111/69; PULSE 72; RESP 18
[2019-03-03] MEDS: PANTOPRAZOLE (EC) 40 MG TAB PO SCH (05:59)
[2019-03-03 07:21] VITALS: BP 89/54; PULSE 59; RESP 18
[2019-03-03] MEDS: FAMOTIDINE 20 MG INJ IV SCH (09:14)
[2019-03-03] MEDS: HEPARIN 5,000 UNIT/1 ML VIAL SC SCH ×2 (09:16→20:36)
--- NOTE | 2019-03-03 09:24 | PN ---
Date/Time of Note Date/Time of Note DATE: 03/03/19 TIME: 09:16 Assessment/Plan VTE Prophylaxis Risk score (from Ns)>0 risk: 1 SCD applied (from Ns): No SCD contraindicated: low risk/ambulating Pharmacological prophylaxis: heparin Lines/Catheters IV Catheter Type (from [facility]): Peripheral IV Assessment/Plan Hospital Course Summary Assessment and Plan: Assessment: Enterocolitis Colonoscopy 03/02/2019 Mild left-sided diverticulosis Moderate-sized internal hemorrhoids. Otherwise normal colonoscopy. No evidence of inflammatory process Leukocytosis likely secondary to above Nausea/vomiting EGD 03/02/2019 Moderate distal esophagitis. Moderate gastritis. Rule out H. pylori infection. Biopsies obtained. Otherwise normal EGD Schizophrenia Bipolar disorder Plan: Full liquid diet- advance as tolerated PPI BID x4 weeks- will d/c H2 yves Add probiotics to current regimen If can tolerate diet and diarrhea improved- ok for out-pt management from GI point of view Pt to f/u with GI after discharge to review pathology - if patient d/c'd prior to results Patient seen in collaboration with Dr. Cramer Subjective: Course reviewed with nursing staff Patient interviewed and examined All labs, imaging and other results reviewed The patient resting in bed, no over night events Ate all her breakfast without c/o n/v or abd pain Patient states she had x2 BMs yesterday - she described as loose/diarrhea Ask nurse to monitor. No Bm yet this am. PHYSICAL EXAMINATION: GENERAL: alert and oriented female, odd affect SKIN: No lesions HEAD: Normocephalic, atraumatic, no tenderness. EYES: Pupils equal reactive to light, no discharge. EARS/NOSE AND THROAT: Ears normal, nose normal. NECK: Supple, no masses, CHEST: Inspection within normal limits. CARDIOVASCULAR: Heart: Regular rate and rhythm RESPIRATORY: Lungs clear to auscultation and percussion, no wheezing, no rubs GASTROINTESTINAL AND LIVER: Abdomen: Soft, non tenderness, non-distended, no hernias, no masses, no organomegaly, no ascites, no guarding, no rebound tenderness, normoactive bowel sounds. Rectal: Deferred. GENITOURINARY: Female genitalia within normal limits. EXTREMITIES: No cyanosis, clubbing or edema. Result Diagram: 03/03/19 0703 03/03/19 0703 Results 24hrs Laboratory Tests Test 03/03/19 07:03 White Blood Count 6.6 # Red Blood Count 4.25 Hemoglobin 13.0 Hematocrit 39.5 Mean Corpuscular Volume 92.9 Mean Corpuscular Hemoglobin 30.6 Mean Corpuscular Hemoglobin Concent 32.9 Red Cell Distribution Width 13.2 Platelet Count 282 Mean Platelet Volume 10.4 Immature Granulocytes % 0.200 Neutrophils % 53.6 Lymphocytes % 32.1 Monocytes % 7.6 Eosinophils % 5.9 Basophils % 0.6 Nucleated Red Blood Cells % 0.0 Immature Granulocytes # 0.010 Neutrophils # 3.5 Lymphocytes # 2.1 Monocytes # 0.5 Eosinophils # 0.4 Basophils # 0.0 Nucleated Red Blood Cells # 0.0 Sodium Level 142 Potassium Level 3.4 L Chloride Level 108 Carbon Dioxide Level 25 Anion Gap 9 Blood Urea Nitrogen 2 L Creatinine 0.75 Est Glomerular Filtrat Rate mL/min > 60 Glucose Level 127 Calcium Level 8.7 Phosphorus Level 3.8 Magnesium Level 2.0 Total Bilirubin 0.5 Direct Bilirubin 0.00 Indirect Bilirubin 0.5 Aspartate Amino Transf (AST/SGOT) 16 Alanine Aminotransferase (ALT/SGPT) 19 Alkaline Phosphatase 38 L Total Protein 5.9 L Albumin 3.2 L Globulin 2.70 Albumin/Globulin Ratio 1.18 Exam/Review of Systems Exam Vitals Vital Signs Date Temp Pulse Resp B/P (MAP) Pulse Ox O2 O2 Flow FiO2 Time Delivery Rate 03/03/19 97.9 59 18 89/54 (66) 93 Room Air 07:21 Intake and Output 03/02/19 03/02/19 03/03/19 1515:00 23:00 07:00 IntakeIntake Total 710 ml 1100 ml 500 ml BalanceBalance 710 ml 1100 ml 500 ml Results Results 24hrs Laboratory Tests Test 03/03/19 07:03 White Blood Count 6.6 # Red Blood Count 4.25 Hemoglobin 13.0 Hematocrit 39.5 Mean Corpuscular Volume 92.9 Mean Corpuscular Hemoglobin 30.6 Mean Corpuscular Hemoglobin Concent 32.9 Red Cell Distribution Width 13.2 Platelet Count 282 Mean Platelet Volume 10.4 Immature Granulocytes % 0.200 Neutrophils % 53.6 Lymphocytes % 32.1 Monocytes % 7.6 Eosinophils % 5.9 Basophils % 0.6 Nucleated Red Blood Cells % 0.0 Immature Granulocytes # 0.010 Neutrophils # 3.5 Lymphocytes # 2.1 Monocytes # 0.5 Eosinophils # 0.4 Basophils # 0.0 Nucleated Red Blood Cells # 0.0 Sodium Level 142 Potassium Level 3.4 L Chloride Level 108 Carbon Dioxide Level 25 Anion Gap 9 Blood Urea Nitrogen 2 L Creatinine 0.75 Est Glomerular Filtrat Rate mL/min > 60 Glucose Level 127 Calcium Level 8.7 Phosphorus Level 3.8 Magnesium Level 2.0 Total Bilirubin 0.5 Direct Bilirubin 0.00 Indirect Bilirubin 0.5 Aspartate Amino Transf (AST/SGOT) 16 Alanine Aminotransferase (ALT/SGPT) 19 Alkaline Phosphatase 38 L Total Protein 5.9 L Albumin 3.2 L Globulin 2.70 Albumin/Globulin Ratio 1.18 Medications Medication Current Medications IV Flush (NS 3 ml) 3 ml PER PROTOCOL IV ; Start 02/28/19 at 05:30 Ondansetron HCl (Zofran Inj) 4 mg Q6H PRN IV NAUSEA/VOMITING; Start 02/28/19 at 05:30 Acetaminophen (Tylenol Tab) 650 mg Q6H PRN PO .PAIN 1-3 OR TEMP; Start 02/28/19 at 05:30 Famotidine (Pepcid Iv) 20 mg Q12 IV Last administered on 03/02/19at 20:54; Admin Dose 20 MG; Start 02/28/19 at 09:00 Heparin Sodium (Porcine) (Heparin (5000 Units/1ml)) 5,000 unit Q12 SC Last administered on 03/02/19at 20:55; Admin Dose 5,000 UNIT; Start 02/28/19 at 09:00 Albuterol/ Ipratropium (Duoneb) 3 ml Q2H RESP THERAPY PRN HHN SHORTNESS OF BREATH; Start 02/28/19 at 05:30 Piperacillin Sod/ Tazobactam Sod 100 ml @ 200 mls/hr Q6 IVPB Last administered on 03/03/19at 05:59; Admin Dose 200 MLS/HR; Start 02/28/19 at 06:00 Lorazepam (Ativan) 1 mg Q8 PRN IV AGITATION; Start 03/01/19 at 15:30 Pantoprazole (Protonix Tab) 40 mg DAILY@06 PO Last administered on 03/03/19 05:59; Admin Dose 40 MG; Start 03/03/19 at 06:00 ROSEMARIE STOUT Mar 03, 2019 09:24
[2019-03-03] MEDS: ARIPIPRAZOLE 5 MG TAB PO SCH (11:48)
[2019-03-03] MEDS: L ACIDOPHIL/B LACTIS/B LONGUM CAPSULE PO SCH ×2 (11:48→20:34)
[2019-03-03] MEDS: VENLAFAXINE 75 MG TABLET PO SCH (11:48)
[2019-03-03 14:00] VITALS: BP 110/68; PULSE 61; RESP 18
[2019-03-03] MEDS ORDERED: POTASSIUM CHLORIDE (SR) 20 MEQ TAB PO STA (15:41)
--- NOTE | 2019-03-03 15:46 | PN ---
Date/Time of Note Date/Time of Note DATE: 03/03/19 TIME: 15:43 Assessment/Plan VTE Prophylaxis Risk [place]from [facility] [place] risk: 1 SCD applied (from [facility] [place] No SCD contraindicated: low risk/ambulating Pharmacological prophylaxis: NA/contraindicated Pharm contraindication: low risk/ambulating Lines/Catheters IV Catheter Type (from [facility]): Peripheral IV Assessment/Plan Assessment/Plan 48 y/o with #Enterocolitis #Leukocytosis likely secondary to above reoslved # Nausea/vomiting s.p EGD with gastritis/esophagitis and colonoscopy diverticulosis #Schizophrenia # Bipolar disorder plan - dc abx - Bia started on ablify and effexor - iv ativan prn -PPI - Advance diet today - Social service consult [facility] Result Diagram: 03/03/1970203/03/19 0703 Results 24hrs Laboratory Tests Test 03/03/19 07:03 White Blood Count 6.6 # Red Blood Count 4.25 Hemoglobin 13.0 Hematocrit 39.5 Mean Corpuscular Volume 92.9 Mean Corpuscular Hemoglobin 30.6 Mean Corpuscular Hemoglobin Concent 32.9 Red Cell Distribution Width 13.2 Platelet Count 282 Mean Platelet Volume 10.4 Immature Granulocytes % 0.200 Neutrophils % 53.6 Lymphocytes % 32.1 Monocytes % 7.6 Eosinophils % 5.9 Basophils % 0.6 Nucleated Red Blood Cells % 0.0 Immature Granulocytes # 0.010 Neutrophils # 3.5 Lymphocytes # 2.1 Monocytes # 0.5 Eosinophils # 0.4 Basophils # 0.0 Nucleated Red Blood Cells # 0.0 Sodium Level 142 Potassium Level 3.4 L Chloride Level 108 Carbon Dioxide Level 25 Anion Gap 9 Blood Urea Nitrogen 2 L Creatinine 0.75 Est Glomerular Filtrat Rate mL/min > 60 Glucose Level 127 Calcium Level 8.7 Phosphorus Level 3.8 Magnesium Level 2.0 Total Bilirubin 0.5 Direct Bilirubin 0.00 Indirect Bilirubin 0.5 Aspartate Amino Transf (AST/SGOT) 16 Alanine Aminotransferase (ALT/SGPT) 19 Alkaline Phosphatase 38 L Total Protein 5.9 L Albumin 3.2 L Globulin 2.70 Albumin/Globulin Ratio 1.18 Subjective 24 Hr Interval Summary Free Text/Dictation some generlaised pain no diarrhoea started on pscy meds denies suicidal ideation Exam/Review of Systems Exam Vitals Vital Signs Date Temp Pulse Resp B/P (MAP) Pulse Ox O2 O2 Flow FiO2 Time Delivery Rate 03/03/19 97.8 61 18 110/68 96 Room Air 14:00 (82) Intake and Output 03/02/19 03/02/19 03/03/19 1515:00 23:00 07:00 IntakeIntake Total 710 ml 1100 ml 500 ml BalanceBalance 710 ml 1100 ml 500 ml Exam xam Constitutional: other (No acute distress. Head: normocephalic, atraumatic Eyes: EOMI, PERRL Respiratory: clear to auscultation, normal air movement Cardiovascular: regular rate and rhythm, nl pulses Gastrointestinal: soft, tender Extremities: normal pulses Results Results 24hrs Laboratory Tests Test 03/03/19 07:03 White Blood Count 6.6 # Red Blood Count 4.25 Hemoglobin 13.0 Hematocrit 39.5 Mean Corpuscular Volume 92.9 Mean Corpuscular Hemoglobin 30.6 Mean Corpuscular Hemoglobin Concent 32.9 Red Cell Distribution Width 13.2 Platelet Count 282 Mean Platelet Volume 10.4 Immature Granulocytes % 0.200 Neutrophils % 53.6 Lymphocytes % 32.1 Monocytes % 7.6 Eosinophils % 5.9 Basophils % 0.6 Nucleated Red Blood Cells % 0.0 Immature Granulocytes # 0.010 Neutrophils # 3.5 Lymphocytes # 2.1 Monocytes # 0.5 Eosinophils # 0.4 Basophils # 0.0 Nucleated Red Blood Cells # 0.0 Sodium Level 142 Potassium Level 3.4 L Chloride Level 108 Carbon Dioxide Level 25 Anion Gap 9 Blood Urea Nitrogen 2 L Creatinine 0.75 Est Glomerular Filtrat Rate mL/min > 60 Glucose Level 127 Calcium Level 8.7 Phosphorus Level 3.8 Magnesium Level 2.0 Total Bilirubin 0.5 Direct Bilirubin 0.00 Indirect Bilirubin 0.5 Aspartate Amino Transf (AST/SGOT) 16 Alanine Aminotransferase (ALT/SGPT) 19 Alkaline Phosphatase 38 L Total Protein 5.9 L Albumin 3.2 L Globulin 2.70 Albumin/Globulin Ratio 1.18 Medications Medication Current Medications IV Flush (NS 3 ml) 3 ml PER PROTOCOL IV ; Start 02/28/19 at 05:30 Ondansetron HCl (Zofran Inj) 4 mg Q6H PRN IV NAUSEA/VOMITING; Start 02/28/19 at 05:30 Acetaminophen (Tylenol Tab) 650 mg Q6H PRN PO .PAIN 1-3 OR TEMP; Start 02/28/19 at 05:30 Heparin Sodium (Porcine) (Heparin (5000 Units/1ml)) 5,000 unit Q12 SC Last administered on 03/03/19 09:16; Admin Dose 5,000 UNIT; Start 02/28/19 at 09:00 Albuterol/ Ipratropium (Duoneb) 3 ml Q2H RESP THERAPY PRN HHN SHORTNESS OF BREATH; Start 02/28/19 at 05:30 Piperacillin Sod/ Tazobactam Sod 100 ml @ 200 mls/hr Q6 IVPB Last administered on 03/03/19 11:49; Admin Dose 200 MLS/HR; Start 02/28/19 at 06:00 Lorazepam (Ativan) 1 mg Q8 PRN IV AGITATION; Start 03/01/19 at 15:30 Pantoprazole (Protonix Tab) 40 mg DAILY@06 PO Last administered on 03/03/19 05:59; Admin Dose 40 MG; Start 03/03/19 at 06:00 Lactobacillus Acidophilus (Florajen3 Capsule) 1 each BID PO Last administered on 03/03/19 11:48; Admin Dose 1 EACH; Start 03/03/19 at 09:30 Venlafaxine HCl (Effexor) 75 mg DAILY PO Last administered on 03/03/19 11:48; Admin Dose 75 MG; Start 03/03/19 at 11:30 Aripiprazole (Abilify) 5 mg DAILY PO Last administered on 03/03/19 11:48; Admin Dose 5 MG; Start 03/03/19 at 11:30 CHENG HARRIS MD Mar 03, 2019 15:46
[2019-03-03 20:00] VITALS: BP 119/70; PULSE 56; RESP 19
[2019-03-04 02:12] VITALS: BP 113/63; PULSE 66; RESP 20
[2019-03-04] MEDS: PANTOPRAZOLE (EC) 40 MG TAB PO SCH (05:59)
[2019-03-04 07:27] VITALS: BP 105/75; PULSE 68; RESP 18
[2019-03-04] MEDS: VENLAFAXINE 75 MG TABLET PO SCH (08:06)
[2019-03-04] MEDS: ARIPIPRAZOLE 5 MG TAB PO SCH (08:06)
[2019-03-04] MEDS: L ACIDOPHIL/B LACTIS/B LONGUM CAPSULE PO SCH (08:06)
[2019-03-04] MEDS: HEPARIN 5,000 UNIT/1 ML VIAL SC SCH (08:08)
--- NOTE | 2019-03-04 09:58 | PN ---
Date/Time of Note Date/Time of Note DATE: 03/04/19 TIME: 09:56 Assessment/Plan VTE Prophylaxis Risk score (from Ns)>0 risk: 1 SCD applied (from Ns): No SCD contraindicated: low risk/ambulating Pharmacological prophylaxis: heparin Lines/Catheters IV [facility]atheter Type (from [facility]): Peripheral IV Assessment/Plan Hospital Course Summary Assessment and Plan: Assessment: Enterocolitis Colonoscopy 03/02/2019 Mild left-sided diverticulosis Moderate-sized internal hemorrhoids. Otherwise normal colonoscopy. No evidence of inflammatory process Leukocytosis likely secondary to above Nausea/vomiting EGD 03/02/2019 Moderate distal esophagitis. Moderate gastritis. Rule out H. pylori infection. Biopsies obtained. Otherwise normal EGD Gastric biopsies: -- Gastric mucosa with no significant histopathological features. -- No Helicobacter pylori organisms identified. Schizophrenia Bipolar disorder Plan: Diet tolerated PPI BID x4 weeks- Continue probiotics to current regimen Patient appears stable for out-pt management from GI point of view GI will sign off, but will be available upon reconsult as needed Patient seen in collaboration with Dr. Cramer Subjective: Course reviewed with nursing staff Patient interviewed and examined All labs, imaging and other results reviewed The patient resting in bed, no over night events Ate all her breakfast without c/o n/v or abd pain Patient states she had x2 BMs yesterday - she described as loose/diarrhea Ask nurse to monitor. No Bm yet this am. PHYSICAL EXAMINATION: GENERAL: alert and oriented female, odd affect SKIN: No lesions HEAD: Normocephalic, atraumatic, no tenderness. EYES: Pupils equal reactive to light, no discharge. EARS/NOSE AND THROAT: Ears normal, nose normal. NECK: Supple, no masses, CHEST: Inspection within normal limits. CARDIOVASCULAR: Heart: Regular rate and rhythm RESPIRATORY: Lungs clear to auscultation and percussion, no wheezing, no rubs GASTROINTESTINAL AND LIVER: Abdomen: Soft, non tenderness, non-distended, no hernias, no masses, no organomegaly, no ascites, no guarding, no rebound tenderness, normoactive bowel sounds. Rectal: Deferred. GENITOURINARY: Female genitalia within normal limits. EXTREMITIES: No cyanosis, clubbing or edema. Result Diagram: 03/03/19 0703 03/03/19 0703 Results 24hrs Laboratory Tests Test 03/04/19 09:54 Lab Scanned Report REFERENCE LAB Exam/Review of Systems Exam Vitals Vital Signs Date Temp Pulse Resp B/P (MAP) Pulse Ox O2 O2 Flow FiO2 Time Delivery Rate 03/04/19 98.1 68 18 105/75 98 Room Air 07:27 (85) Intake and Output 03/03/19 03/03/19 03/04/19 1515:00 23:00 07:00 IntakeIntake Total 900 ml 400 ml BalanceBalance 900 ml 400 ml Results Results 24hrs Laboratory Tests Test 03/04/19 09:54 Lab Scanned Report REFERENCE LAB Medications Medication Current Medications IV Flush (NS 3 ml) 3 ml PER PROTOCOL IV ; Start 02/28/19 at 05:30 Ondansetron HCl (Zofran Inj) 4 mg Q6H PRN IV NAUSEA/VOMITING; Start 02/28/19 at 05:30 Acetaminophen (Tylenol Tab) 650 mg Q6H PRN PO .PAIN 1-3 OR TEMP; Start 02/28/19 at 05:30 Heparin Sodium (Porcine) (Heparin (5000 Units/1ml)) 5,000 unit Q12 SC Last administered on 03/04/19at 08:08; Admin Dose 5,000 UNIT; Start 02/28/19 at 09:00 Albuterol/ Ipratropium (Duoneb) 3 ml Q2H RESP THERAPY PRN HHN SHORTNESS OF BREATH; Start 02/28/19 at 05:30 Lorazepam (Ativan) 1 mg Q8 PRN IV AGITATION; Start 03/01/19 at 15:30 Pantoprazole (Protonix Tab) 40 mg DAILY@06 PO Last administered on 03/04/19 05:59; Admin Dose 40 MG; Start 03/03/19 at 06:00 Lactobacillus Acidophilus (Florajen3 Capsule) 1 each BID PO Last administered on 03/04/19 08:06; Admin Dose 1 EACH; Start 03/03/19 at 09:30 Venlafaxine HCl (Effexor) 75 mg DAILY PO Last administered on 03/04/19 08:06; Admin Dose 75 MG; Start 03/03/19 at 11:30 Aripiprazole (Abilify) 5 mg DAILY PO Last administered on 03/04/19 08:06; Admin Dose 5 MG; Start 03/03/19 at 11:30 ROSEMARIE STOUT Mar 04, 2019 09:58
--- NOTE | 2019-03-04 12:14 | DS ---
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 Here work-up was obtained including hematology showing a leukocytosis with a WBC of 18.9 neutrophils 89 and lymphocytes 2.7 additionally, chemistry shows mild hypokalemia normal LFTs and a serum hCG qualitative is negative. A chest x-ray was completed. Impression: no evidence of active cardiopulmonary disease. Additionally a CT abdomen/pelvis without contrast revealed diffusely thickened fluid-filled small bowel and proximal colon most suggestive of an enterocolitis without evidence for obstruction, no CT evidence for appendicitis. Pt has enlarged lobular uterus. Stool studies have been ordered and showed c diff. negative and normal stool. Patient has been started on empiric antibiotics. Pt was n.p.o. with IV fluid. Colonoscopy 03/02/2019 showed mild left-sided diverticulosis, moderate-sized internal hemorrhoids, otherwise normal colonoscopy and no evidence of inflammatory process. EGD was performed 03/02/2019. It showed: moderate distal esophagitis, moderate gastritis. Biopsies was obtained: showed: Gastric mucosa with no significant histopathological features. No Helicobacter pylori organisms identified. Leukocytosis secondary enterocolitis is resolved. Nausea/vomiting were resolved. Pt was tolerating advanced diet. She was ambulating in unit. 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 Pt potassium was replete. Social service consult seen. Home Meds Active Scripts Aripiprazole* (Abilify*) 5 Mg Tab, 5 MG PO DAILY for 30 Days, TAB Prov:DONOVAN LOZANO 03/04/19 Pantoprazole* (Pantoprazole*) 40 Mg Tablet., 40 MG PO DAILY@06 for 7 Days Prov:DONOVAN LOZANO 03/04/19 L Acidophil/B Lactis/B Longum (FLORAJEN3 CAPSULE) 460 Mg Capsule, 1 EACH PO BID for 30 Days, CAP Prov:DONOVAN LOZANO 03/04/19 Venlafaxine Hcl* (Venlafaxine Hcl*) 75 Mg Tablet, 75 MG PO DAILY for 30 Days, TAB Prov:DONOVAN LOZANO 03/04/19 Discontinued Reported Medications Venlafaxine Hcl* (Effexor*) 37.5 Mg Tablet, 37.5 MG PO BID, TAB 12/28/18 Lurasidone Hcl (LATUDA) 20 Mg Tablet, 20 MG PO DAILY, #30 TAB 12/28/18 Primary Care Provider c/w PCP 2 weeks Time spent on discharge: < 30 minutes Pending Labs Laboratory Tests Test 03/04/19 09:54 Lab Scanned Report REFERENCE LAB [id number] DONOVAN LOZANO Mar 04, 2019 12:14
[2019-03-04 14:00] VITALS: BP 115/70; PULSE 64; RESP 18
--- NOTE | 2019-03-04 14:03 | PN ---
Date/Time of Note Date/Time of Note DATE: 03/04/19 TIME: 14:01 Assessment/Plan VTE Prophylaxis Risk score (from Ns)>0 risk: 1 SCD applied (from Ns): No SCD contraindicated: low risk/ambulating Pharmacological prophylaxis: NA/contraindicated Pharm contraindication: low risk/ambulating Lines/Catheters IV Catheter Type (from [facility]): Peripheral IV Assessment/Plan Hospital Course #Enterocolitis #Leukocytosis likely secondary to above resolved. # Nausea/vomiting s.p EGD with gastritis/esophagitis and colonoscopy diverticulosis #Schizophrenia # Bipolar disorder Assessment/Plan - Bia started on ablify and effexor - iv ativan prn -gi PROPHYLAXIS PPI -k REPLET - Advanced diet today. pt has few bits - Social service consult seen Result Diagram: 03/03/19 0703 03/03/19 0703 Results 24hrs Laboratory Tests Test 03/04/19 09:54 Lab Scanned Report REFERENCE LAB Subjective 24 Hr Interval Summary Gastrointestinal: pain, decreased appetite Neurologic: other (weakness) Exam/Review of Systems Exam Vitals Vital Signs Date Temp Pulse Resp B/P (MAP) Pulse Ox O2 O2 Flow FiO2 Time Delivery Rate 03/04/19 98.1 68 18 105/75 98 Room Air 07:27 (85) Intake and Output 03/03/19 03/03/19 03/04/19 1515:00 23:00 07:00 IntakeIntake Total 900 ml 400 ml BalanceBalance 900 ml 400 ml Constitutional: alert, oriented Head: normocephalic Neck: supple Respiratory: clear to auscultation Cardiovascular: regular rate and rhythm Gastrointestinal: soft, rebound or guarding; No nl liver, spleen, No non-tender, No ascites, No bowel sounds, No distended, No firm, No hepatomegaly, No mass, No splenomegaly, No surgical scars, No tender, No other Results Results 24hrs Laboratory Tests Test 03/04/19 09:54 Lab Scanned Report REFERENCE LAB Medications Medication Current Medications IV Flush (NS 3 ml) 3 ml PER PROTOCOL IV ; Start 02/28/19 at 05:30 Ondansetron HCl (Zofran Inj) 4 mg Q6H PRN IV NAUSEA/VOMITING; Start 02/28/19 at 05:30 Acetaminophen (Tylenol Tab) 650 mg Q6H PRN PO .PAIN 1-3 OR TEMP; Start 02/28/19 at 05:30 Heparin Sodium (Porcine) (Heparin (5000 Units/1ml)) 5,000 unit Q12 SC Last administered on 03/04/19at 08:08; Admin Dose 5,000 UNIT; Start 02/28/19 at 09:00 Albuterol/ Ipratropium (Duoneb) 3 ml Q2H RESP THERAPY PRN HHN SHORTNESS OF BREATH; Start 02/28/19 at 05:30 Lorazepam (Ativan) 1 mg Q8 PRN IV AGITATION; Start 03/01/19 at 15:30 Pantoprazole (Protonix Tab) 40 mg DAILY@06 PO Last administered on 03/04/19at 05:59; Admin Dose 40 MG; Start 03/03/19 at 06:00 Lactobacillus Acidophilus (Florajen3 Capsule) 1 each BID PO Last administered on 03/04/19 08:06; Admin Dose 1 EACH; Start 03/03/19 at 09:30 Venlafaxine HCl (Effexor) 75 mg DAILY PO Last administered on 03/04/19 08:06; Admin Dose 75 MG; Start 03/03/19 at 11:30 Aripiprazole (Abilify) 5 mg DAILY PO Last administered on 03/04/19 08:06; Admin Dose 5 MG; Start 03/03/19 at 11:30 DONOVAN LOZANO Mar 04, 2019 14:03
[2019-03-04] MEDS ORDERED: PANT40TA4 PO (14:14)
[2019-03-04] MEDS ORDERED: L.AC460C PO (14:14)
[2019-03-04] MEDS ORDERED: ARIP5TAB14 PO (14:14)
[2019-03-04] MEDS ORDERED: VENL75TA PO (14:14)
[2019-03-04] MEDS ORDERED: POTASSIUM CHLORIDE 20 MEQ POWDER FOR ORAL SOLN PO SCH (14:30)
== END 2019-03-04 18:11 | disposition home or self-care (01) | DRG 392 ==
LOC: EDBD → E/R 23:03 → PP2 02-28 03:08 → MERGE 02-28 03:08 → OBSVTOIN 02-28 14:15 → 5EC 02-28 21:09
PROVIDERS: ADMIT Internal Medicine; ATTEND Internal Medicine
PROC: 0DB68ZX Excision of Stomach, Via Natural or Artificial Opening Endoscopic, Diagnostic (ICD-10-PCS; principal; 2019-03-02 18:00)
PROC: 0DJD8ZZ Inspection of Lower Intestinal Tract, Via Natural or Artificial Opening Endoscopic (ICD-10-PCS; 2019-03-02 18:00)
DX: K52.9 Noninfective gastroenteritis and colitis, unspecified (principal); K57.30 Diverticulosis of large intestine without perforation or abscess without bleeding; K64.8 Other hemorrhoids; K20.9 Esophagitis, unspecified; K29.70 Gastritis, unspecified, without bleeding; E87.6 Hypokalemia; F20.9 Schizophrenia, unspecified; F31.9 Bipolar disorder, unspecified; Z59.0 Homelessness
CPT/HCPCS: 36415; 71045; 74176; 80053; 80307; 83690; 83735; 84100; 84703; 85025; 85651; 86140; 87045; 87075; 87081; 87177; 88305; 96374; G0378; J1335; J1630; J1644; J2060; J2250; J2405; J2543; J3010; J7030; J7040; J7042